=== PATIENT | male | born 1985 | race African-American/Black ===

== ENCOUNTER 2023-11-28 05:07 | Emergency (ER) | payer OTHER ==
[~2023-11-28] VITALS: Ht 172.7 cm; Wt 79.4 kg
[2023-11-28] MEDS ORDERED: AMOX-427 PO (06:10)
[2023-11-28] MEDS ORDERED: CEFTRIAXONE 1 G VIAL ONE (06:14)
[2023-11-28] MEDS ORDERED: dexaMETHasone SOD PHOSPHATE 1 ML ONE (06:14)
[2023-11-28] MEDS ORDERED: LIDOCAINE 1% INJ 50 ML MDV IJ ONE (06:15)
[2023-11-28] MEDS: CEFTRIAXONE 1 G VIAL IM ONE (06:23)
[2023-11-28] MEDS: dexaMETHasone SOD PHOSPHATE 10 MG/ML VIAL IM ONE (06:24)
[2023-11-28 07:31] VITALS: BP 137/87; TEMP 99.6; O2SAT 97
== END 2023-11-28 07:31 | disposition home or self-care (01) ==
LOC: ER 05:09
DX: J36 Peritonsillar abscess (principal); Z79.899 Other long term (current) drug therapy; Z20.822 Contact with and (suspected) exposure to COVID-19; Z88.8 Allergy status to other drugs, medicaments and biological substances
CPT/HCPCS: 99284; 87426; 96372 ×2; 87880; 82962; J1100; J3490; J0696; 86403-TC; 87070-TC

== ENCOUNTER 2024-03-17 18:14 | Emergency (ER) | payer MEDICAID, OTHER ==
[~2024-03-17] VITALS: Ht 170.2 cm; Wt 70.8 kg
[~2024-03-17 18:14] MED LIST: AMOX-427 PO
[2024-03-17 18:23] VITALS: BP 140/95; TEMP 98.4; O2SAT 97
[2024-03-17] MEDS ORDERED: AMOX-430 PO (18:37)
[2024-03-17] MEDS ORDERED: IBUP-1953 PO (18:37)
[2024-03-17] MEDS ORDERED: KETOROLAC TROMETHAMINE INJ 60 MG/2 ML VIAL IM ONE (18:38)
[2024-03-17] MEDS ORDERED: AMOX/CLAVULANATE 875 MG TABLET ONE (18:38)
[2024-03-17] MEDS: AMOX/CLAVULANATE 875 MG TABLET PO ONE (18:43)
[2024-03-17] MEDS: KETOROLAC TROMETHAMINE INJ 30 MG/ML VIAL IM ONE (18:43)
== END 2024-03-17 19:40 | disposition home or self-care (01) ==
LOC: ER 18:14
DX: J03.90 Acute tonsillitis, unspecified (principal); R07.0 Pain in throat; Z88.8 Allergy status to other drugs, medicaments and biological substances
CPT/HCPCS: 99283; 96372; J1885